=== PATIENT | male | born 1990 | race Caucasian/White ===

== ENCOUNTER 2022-09-21 23:06 | Emergency (ER) | payer OTHER ==
[2022-09-21 23:33] VITALS: BP 138/79
[2022-09-21 23:45] VITALS: BP 135/83
[2022-09-22] VITALS: BP 144/90
[2022-09-22 00:38] LABS: HEMATOCRIT 38.1 % (39.0-50.0); HEMOGLOBIN 12.9 g/dl (14.0-18.0); IMMATURE GRANULOCYTES 0.5 % (0.0-5.0); MEAN CELL VOLUME 90.5 fL CALC (80.0-100.0); MEAN CORPUSCULAR HGB 30.6 pG CALC (26.0-32.0); MEAN CORPUSCULAR HGB CONC 33.9 g/dL CAL (32.0-36.0); NEUT# 8.67 thou/uL (1.82-7.42); RED BLOOD COUNT 4.21 mill/uL (4.70-6.10); RED CELL DISTRI WIDTH 11.7 % (11.5-15.5)
[2022-09-22 00:53] LABS: ALBUMIN 4.9 g/dL (3.2-5.0); ALKALINE PHOSPHATASE 77 u/l (38-126); ANION GAP 18 (6-22 (CALC)); BILIRUBIN, TOTAL 0.7 mg/dL (0.0-1.4); BUN 12 mg/dL (9-20); BUN/CREATININE RATIO 18 (12-20 (CALC)); CARBON DIOXIDE 28 mmol/l (22-30); CHLORIDE 99 mmol/l (95-108); CREATININE 0.7 mg/dL (0.7-1.3); GFR FOR AFR.AMER. > 60 ML/MIN (>=60 (CALC)); GFR OTHER RACES > 60 ML/MIN (>=60 (CALC)); LIPASE 54 u/l (23-300); POTASSIUM 3.4 mmol/l (3.5-5.1); SGOT/AST 57 u/l (17-59); SODIUM 141 mmol/l (137-146); TOTAL PROTEIN 8.4 g/dL (6.3-8.2)
[2022-09-22] MEDS ORDERED: PROMETHAZINE HY25 M1 PO (02:08)
[2022-09-22 02:10] VITALS: BP 144/90
== END 2022-09-22 02:32 | disposition home or self-care (01) | DRG 392 ==
LOC: ED 23:06
PROVIDERS: Family Medicine
DX: K52.9 Noninfective gastroenteritis and colitis, unspecified (principal)
CPT/HCPCS: S0164

== ENCOUNTER 2022-11-07 13:43 | Emergency (ER) | payer OTHER ==
[2022-11-07] VITALS (9 sets, daily range): BP systolic 110–136; BP diastolic 64–82
[~2022-11-07] VITALS: Ht 172.7 cm; Wt 85.0 kg
[~2022-11-07 13:43] MED LIST: PROMETHAZINE HY25 M1 PO
[2022-11-07] MEDS ORDERED: CIPROFLOXACN500 MG PO (15:49)
== END 2022-11-07 16:16 | disposition home or self-care (01) | DRG 156 ==
LOC: ED 13:43
PROC: 0HQ3XZZ Repair Left Ear Skin, External Approach (ICD-10-PCS; principal; 2022-11-07)
DX: S01.312A Laceration without foreign body of left ear, initial encounter (principal); W01.0XXA Fall on same level from slipping, tripping and stumbling without subsequent striking against object, initial encounter; S01.01XA Laceration without foreign body of scalp, initial encounter